=== PATIENT | female | born 1990 | race Caucasian/White ===

== ENCOUNTER 2016-11-18 10:49 | Inpatient (IN) | payer OTHER ==
[2016-11-18] VITALS (7 sets, daily range): BP systolic 120–135; BP diastolic 62–99; PULSE 72–81; RESP 18; TEMP 97.9–98.1; O2SAT 99–100
[~2016-11-18] VITALS: Ht 160 cm; Wt 95.3 kg
[2016-11-18] MEDS: LACTATED RINGER'S 1000 ML INJ 1,000 ML IV SCH ×3 (11:30→14:00)
[2016-11-18] MEDS ORDERED: PREN29TA PO (11:42)
[2016-11-18] MEDS ORDERED: BUPIVACAINE HCL PF 0.25% 10 ML VIAL ONE (11:52)
[2016-11-18 11:55] LABS: AUTOMATED NEUTROPHIL # 11.7 TH/MM3 (1.8-7.7); BASOPHIL % 0.2 % (0.0-2.0); EOSINOPHIL # 0.6 TH/MM3 (0-0.4); EOSINOPHIL % 4.2 % (0.0-4.0); HEMO FLAGS DIFF FINAL; LYMPH % 11.1 % (9.0-44.0); LYMPHOCYTE # 1.7 TH/MM3 (1.0-4.8); MEAN CELL VOLUME 81.5 FL (80.0-100.0); MEAN CORPUSCULAR HEMOGLOBIN 27.7 PG (27.0-34.0); MEAN CORPUSCULAR HGB CONC 34.1 % (32.0-36.0); MONO % 6.2 % (0.0-8.0); NEUT % 78.3 % (16.0-70.0); PLATELET COUNT 213 TH/MM3 (150-450); RED BLOOD COUNT 4.43 MIL/MM3 (4.00-5.30); RED CELL DISTRIBUTION WIDTH 13.2 % (11.6-17.2)
[2016-11-18 12:03] LABS: BACTERIA, URINE RARE /hpf; BLOOD, URINE NEG (NEG); COMMENT (UR) CULT NOT INDICATED; CULTURE IF INDICATED CULT NOT INDICATED; GLUCOSE,URINE NEG (NEG); KETONE, URINE NEG (NEG); MUCUS URINE FEW /lpf (OCC); NITRITE,URINE NEG (NEG); SQUAMOUS EPITHELIAL CELL URINE 3 /hpf (0-5); URINE COLOR YELLOW (YELLW/STRAW)
--- NOTE | 2016-11-18 12:17 | HHI.HP ---
HPI Chief Complaint persistent breech with favorable parameters Date Seen: Nov 18, 2016 Travel History International Travel<30 Days: No Contact w/Intl Traveler<30Days: No Known Affected Area: No History of Present Illness HPI 26 yo mwf at 38 weeks with Tony breech, FAHAD 12.1, posterior placenta. She is a patient of Dr. Blanchard and she requested an external version and was referred to me. Her care began at 9 weeks. She did not have PTL, GDM or HTN issues. She currently has no UCs, leaking, bleeding. Cervix was ft and tony breech. A+ immune to japanese measles and VZ glucola negative GBS - Biophysical today 01/04. Para: 0 : 2 Last Menstrual Period: Nov 18, 2016 History Past Medical History Medical History: Denies Significant Hx Past Surgical History Surgical History: No Previous Surgery Family History Family History: Negative Social History Alcohol Use: No Tobacco Use: No Substance Abuse: No Allergies-Medications (Allergen,Severity, Reaction): Coded Allergies: No Known Allergies (Unverified , 11/18/16) Home Meds Reported Medications Vit-Iron Carbonyl ( Plus Iron 29-1 mg)1 Tab Tab1 Tab PO DAILY #30 TAB Ref 0 11/18/16 Review of Systems General / Constitutional: No: Fever, Weight Gain, Chills, Other Eyes: No: Diploplia, Blurred Vision, Visual changes, Pain, Photophobia HENT: No: Headaches, Vertigo, Lightheadedness Cardiovascular: No: Irregular Rhythm, Chest Pain or Discomfort, Palpitations, Tachycardia, Syncope, Varicosities, Edema, Cyanosis Respiratory: No: Cough, Short of Breath, Other Gastrointestinal: No: Nausea, Vomiting, Diarrhea Genitourinary: No: Decreased Urinary Output, Oliguria Musculoskeletal: No: Limited ROM, Weakness, Cramping, Edema, Pain Skin: No Rash, No Itching, No Dryness, No Lumps, No Change in Pigmentation, No Change in Nails, No Alopecia, No Lesions Neurologic: No: Weakness, Dizziness, Syncope, Focal Abnormalities, Coordination Problem, Headache, Slurred Speech, Seizures Psychiatric: No: Depression, Suicidal Ideations, Homicidal Ideation Endocrine: No: Heat Intolerance, Cold Intolerance, Polydipsia, Polyuria, Other Physical Exam Narrative GENERAL: Well-nourished, well-developed patient. SKIN: Warm and dry. HEAD: Normocephalic and atraumatic. EYES: No scleral icterus. No injection or drainage. ENT: No nasal drainage noted. Mucous membranes pink. Airway patent. NECK: Supple, trachea midline. No JVD. CARDIOVASCULAR: Regular rate and rhythm without murmurs, gallops, or rubs. RESPIRATORY: Breath sounds equal bilaterally. No accessory muscle use. BREASTS: Bilateral exam showed no masses , no retractions, no nipple discharge. ABDOMEN/GI: Abdomen soft, non-tender, bowel sounds present, no rebound, no guarding Gravid to [-] weeks size Fundal Height: [-] GENITOURINARY: External Genitalia: intact and normal in appearance cervix thin, posterior and finger tip FHT's: category 1 EXTREMITIES: No cyanosis or edema. BACK: Nontender without obvious deformity. No CVA tenderness. NEUROLOGICAL: Awake and alert. Motor and sensory grossly within normal limits. Five out of 5 muscle strength in all muscle groups. Normal speech. Data Data Orders Urinalysis - C+S If Indicated (11/18/16 11:39) Specimen To Be Collected PRN (11/18/16 11:39) Complete Blood Count With Diff (11/18/16 11:39) Hold Clot (11/18/16 11:39) Abo/Rh Blood Type (11/18/16 11:39) Fentanyl Inj (Fentanyl Inj) (11/18/16 11:51) Bupivacaine Pf 0.25% Inj (Marcaine Pf 0. (11/18/16 11:52) Labs Laboratory Tests Test 11/18/16 11/18/16 11:00 11:30 Urine Color YELLOW Urine Turbidity HAZY Urine pH 7.0 Urine Specific [place] 1.018 Urine Protein NEG Urine Glucose (UA) NEG Urine Ketones NEG Urine Occult Blood NEG Urine Nitrite NEG Urine Bilirubin NEG Urine Urobilinogen LESS THAN 2.0 Urine Leukocyte Esterase NEG Urine RBC 1 Urine WBC 4 Urine Squamous Epithelial 3 Cells Urine Bacteria RARE Urine Mucus FEW Microscopic Urinalysis Comment CULT NOT INDICATED White Blood Count 15.0 Red Blood Count 4.43 Hemoglobin 12.3 Hematocrit 36.0 Mean Corpuscular Volume 81.5 Mean Corpuscular Hemoglobin 27.7 Mean Corpuscular Hemoglobin 34.1 Concent Red Cell Distribution Width 13.2 Platelet Count 213 Mean Platelet Volume 9.0 Neutrophils (%) (Auto) 78.3 Lymphocytes (%) (Auto) 11.1 Monocytes (%) (Auto) 6.2 Eosinophils (%) (Auto) 4.2 Basophils (%) (Auto) 0.2 Neutrophils # (Auto) 11.7 Lymphocytes # (Auto) 1.7 Monocytes # (Auto) 0.9 Eosinophils # (Auto) 0.6 Basophils # (Auto) 0.0 CBC Comment DIFF FINAL Differential Comment Assessment/Plan Assessment and Plan tony breech in primip with favorable metrics since primip 38 weeks better than later however, [employer] of [employer] initiative interfering with good medicine and preventing delivery after version. If version successful or not she is to be discharged per protocol and return at 39 weeks for either section or induction. If compromise noted during version, will proceed today. Marija Rowell MD Nov 18, 2016 12:17
[2016-11-18] MEDS ORDERED: TERBUTALINE INJ 1 MG/ML AMP SQ ONE (12:30)
[2016-11-18] MEDS ORDERED: DICLOFENAC SODIUM 37.5 MG/ML VIAL IV PUSH ONE (13:12)
[2016-11-18] MEDS ORDERED: ceFAZolin INJ 1,000 MG VIAL ONE (13:13)
[2016-11-18] MEDS ORDERED: OXYTOCIN 10 UNIT/ML AMP ONE (13:13)
--- NOTE | 2016-11-18 13:26 | PD.PN.STU ---
Subjective Remarks 26 year old mwf presents at 38 weeks with Ginger breech and a posterior placenta. She is a patient of Dr. Blanchard and she requested that we attempt an external version and was referred to Dr. Rowell. Her care began at 9 weeks. She did not have labor, gestational diabetes mellitus or hypertension problems. She currently has no contractions, leaking, bleeding. Ultrasound confirmed the fetus was still Ginger breech. Pt is A+ immune to arabic measles and VZ glucola negative GBS - Biophysical today 01/04. ' The version was attempted for 30 minutes but was unsuccessful. The mother was incredibly brave. There were deep variables present and there is now concern for placenta compromise. We will be proceeding to immediately after a discussion with the patient. The patient was given an epidural for the version. Objective Vitals Laboratory Tests Test 11/18/16 11/18/16 11:00 11:30 Urine Color YELLOW Urine Turbidity HAZY Urine pH 7.0 Urine Specific [place] 1.018 Urine Protein NEG mg/dL Urine Glucose (UA) NEG mg/dL Urine Ketones NEG mg/dL Urine Occult Blood NEG Urine Nitrite NEG Urine Bilirubin NEG Urine Urobilinogen LESS THAN 2.0 MG/DL Urine Leukocyte Esterase NEG Urine RBC 1 /hpf Urine WBC 4 /hpf Urine Squamous Epithelial 3 /hpf Cells Urine Bacteria RARE /hpf Urine Mucus FEW /lpf Microscopic Urinalysis Comment CULT NOT INDICATED White Blood Count 15.0 TH/MM3 Red Blood Count 4.43 MIL/MM3 Hemoglobin 12.3 GM/DL Hematocrit 36.0 % Mean Corpuscular Volume 81.5 FL Mean Corpuscular Hemoglobin 27.7 PG Mean Corpuscular Hemoglobin 34.1 % Concent Red Cell Distribution Width 13.2 % Platelet Count 213 TH/MM3 Mean Platelet Volume 9.0 FL Neutrophils (%) (Auto) 78.3 % Lymphocytes (%) (Auto) 11.1 % Monocytes (%) (Auto) 6.2 % Eosinophils (%) (Auto) 4.2 % Basophils (%) (Auto) 0.2 % Neutrophils # (Auto) 11.7 TH/MM3 Lymphocytes # (Auto) 1.7 TH/MM3 Monocytes # (Auto) 0.9 TH/MM3 Eosinophils # (Auto) 0.6 TH/MM3 Basophils # (Auto) 0.0 TH/MM3 CBC Comment DIFF FINAL Differential Comment Blood Type A POSITIVE Blood Bank Comment Band and Hold Current Medications Medications (Trade) Dose Ordered Sig/Suze Route PRN Reason Start Time Stop Time Status Last Admin Dose Admin Fentanyl Citrate (fentaNYL INJ) 100 mcg STK-MED ONCE .ROUTE 11/18/16 11:51 11/18/16 11:52 DC Bupivacaine HCl 10 ml 10 ml STK-MED ONCE .ROUTE 11/18/16 11:52 11/18/16 11:53 DC Lactated Ringer's (Lr 1000 ml Inj) 1,000 ml @ 0 mls/hr Q0M IV 11/18/16 12:17 Terbutaline Sulfate (Brethine Inj) 0.25 mg ONCE ONCE SQ 11/18/16 12:30 11/18/16 12:31 DC Fentanyl Citrate (fentaNYL INJ) 50 mcg ONCE ONCE IV PUSH 11/18/16 12:30 11/18/16 12:31 DC Result Diagram: 11/18/16 1130 A/P Assessment and Plan Assessment and Plan ginger breech with failed version. Version was attempted for 30 minutes but was unsuccessful. Due to the deep variables present and the concern for placenta compromise, we will be proceeding to immediately. This decision was discussed and made with the patient. the patient already has an epidural in place from the version. Artis Ferrell M3 Nov 18, 2016 13:26
[2016-11-18] MEDS ORDERED: CITRIC ACID-SODIUM CITRATE LIQ 30 ML UDC PO SCH (13:30)
[2016-11-18] MEDS ORDERED: SODIUM CHLORIDE 0.9% FLUSH 10 ML FLUSH IV FLUSH PRN ×2 (13:30→14:45)
[2016-11-18] MEDS ORDERED: LIDOCAINE HCL 2% 20 ML VIAL ONE (14:00)
[2016-11-18] MEDS ORDERED: SODIUM BICARBONATE 8.4% INJ 50 MEQ/50 ML SYR ONE (14:00)
[2016-11-18] MEDS ORDERED: LACTATED RINGER'S 1000 ML INJ 1,000 ML IV SCH ×2 (14:00→19:45)
[2016-11-18] MEDS ORDERED: DOCUSATE SODIUM 50 MG/SENNA 8.6 MG TAB PO PRN (14:45)
[2016-11-18] MEDS ORDERED: ONDANSETRON HCL 4 MG/2 ML VIAL IV PUSH PRN (14:45)
[2016-11-18] MEDS ORDERED: OXYTOCIN 30 UNITS-500ML PREMIX 500 ML IV ONE (14:45)
[2016-11-18] MEDS ORDERED: ACETAMINOPHEN 1000 MG/100 ML VIAL IV ONE ×2 (14:45→15:43)
[2016-11-18] MEDS ORDERED: SIMETHICONE 80 MG CHEWABLE TAB PO PRN (14:45)
--- NOTE | 2016-11-18 14:45 | PD.OB.DELI ---
Procedure Note Section Procedure Pre Op Diagnosis term, breech trial of version Post Op Diagnosis: Post Op Diagnosis same, delivered Performed by Marija Rowell Procedure: Primary Low Transverse Sec Indication for delivery: malposition Informed consent obtained: For anesthesia, For procedure Confirmed correct: Patient, Procedure, Site, Time-out taken Anesthesia: Epidural Medication prior to procedure: As documented in eMAR Monitoring during procedure: Blood pressure monitoring, Pulse oximetry Urinary catheter: Inserted using sterile technique, To dependent drainage Sterile preparation: In usual fashion, With 2% chlorexidine (Hibiclens) Position: Supine with wedge to right side Operative Features Skin Incision: Pfannenstiel Uterine Incision: Low transverse w/knife / blunt ext Membranes Ruptured: Artificially Presentation: Breech Delivery of : Assisted Infant: Female One Minute : 6 Five Minute : 9 Weight: 7 9 Status of : Viable, Cord blood Placenta delivered: Intact Medications: Antibiotics, Oxytocin Estimated blood loss: 500 Maternal Condition: Stable Condition: Stable Marija Rowell MD Nov 18, 2016 14:45
[2016-11-18] MEDS ORDERED: ONDANSETRON HCL 4 MG/2 ML VIAL ONE (15:01)
[2016-11-18] MEDS ORDERED: MORPHINE SULFATE PF 5 MG/10 ML VIAL ONE (15:01)
[2016-11-18] MEDS ORDERED: OXYTOCIN 30 UNITS-500ML PREMIX 500 ML ONE (15:43)
[2016-11-18] MEDS ORDERED: EPIDURAL-DIPHENHYDRAMINE HCL 50 MG CAP PO PRN (17:45)
[2016-11-18] MEDS ORDERED: EPIDURAL-NALOXONE HCL 0.4 MG/ML AMP IV PRN (17:45)
[2016-11-18] MEDS ORDERED: EPIDURAL-DIPHENHYDRAMINE HCL 50 MG/ML VIAL IV PUSH PRN (17:45)
[2016-11-18] MEDS ORDERED: EPIDURAL-DO NOT ADMINISTER ANTICOAGULANTS PRN (17:45)
[2016-11-18] MEDS ORDERED: EPIDURAL-NO SYSTEMIC NARCOTICS PRN (17:45)
[2016-11-18] MEDS: DICLOFENAC SODIUM 37.5 MG/ML VIAL IV PUSH SCH (20:03)
[2016-11-18] MEDS ORDERED: ZOLPIDEM TARTRATE 5 MG TAB PO PRN (21:00)
[2016-11-18] MEDS ORDERED: SODIUM CHLORIDE 0.9% FLUSH 10 ML FLUSH IV FLUSH SCH ×2 (21:00)
[2016-11-19] MEDS ORDERED: OXYTOCIN 30 UNITS-500ML PREMIX 500 ML IV PRN (00:45)
[2016-11-19] MEDS: DICLOFENAC SODIUM 37.5 MG/ML VIAL IV PUSH SCH (02:33)
[2016-11-19 06:50] LABS: AUTOMATED NEUTROPHIL # 12.4 TH/MM3 (1.8-7.7); BASOPHIL % 0.2 % (0.0-2.0); EOSINOPHIL # 0.4 TH/MM3 (0-0.4); EOSINOPHIL % 2.6 % (0.0-4.0); HEMATOCRIT 34.8 % (35.0-46.0); HEMO FLAGS DIFF FINAL; LYMPH % 10.9 % (9.0-44.0); LYMPHOCYTE # 1.7 TH/MM3 (1.0-4.8); MEAN CELL VOLUME 81.5 FL (80.0-100.0); MEAN CORPUSCULAR HEMOGLOBIN 28.1 PG (27.0-34.0); MEAN CORPUSCULAR HGB CONC 34.4 % (32.0-36.0); MONO % 5.8 % (0.0-8.0); NEUT % 80.5 % (16.0-70.0); PLATELET COUNT 192 TH/MM3 (150-450); RED BLOOD COUNT 4.26 MIL/MM3 (4.00-5.30); RED CELL DISTRIBUTION WIDTH 13.4 % (11.6-17.2); WHITE BLOOD COUNT 15.4 TH/MM3 (4.0-11.0)
--- NOTE | 2016-11-19 07:58 | HHI.OB ---
Subjective Post Operative Day: 1 Remarks still has not voided or passed gas. feels well. does not want percocet or narcotics because it makes her very nauseated Objective Vitals/I&O Vital Signs Date Time Temp Pulse Resp B/P Pulse Ox O2 Delivery O2 Flow Rate FiO2 11/18/16 16:35 97.9 72 18 129/73 11/18/16 16:05 98.0 11/18/16 16:05 79 18 129/69 100 11/18/16 15:50 135/99 11/18/16 15:50 80 18 99 11/18/16 15:35 81 18 132/72 11/18/16 15:35 100 11/18/16 15:20 100 11/18/16 15:15 80 18 120/62 11/18/16 15:05 98.1 75 18 123/85 11/18/16 15:05 100 Result Diagram: 11/19/16 06 Objective Remarks GENERAL: Well-nourished, well-developed patient. CARDIOVASCULAR: Regular rate and rhythm without murmurs, gallops, or rubs. RESPIRATORY: Breath sounds equal bilaterally. No accessory muscle use. ABDOMEN/GI: Abdomen soft, non-tender, bowel sounds present. Incision:Clean, dry and intact. Fundus: Firm, non-tender at umbilicus. GENITOURINARY: Light to moderate bleeding. EXTREMITIES: No cyanosis or edema, non-tender, without signs of DVT. Medications and IVs Current Medications Medications (Trade) Dose Ordered Sig/Suze Route Start Time Stop Time Status Last Admin (Lr 1000 ml Inj) 1,000 ml @ 0 mls/hr Q0M IV 11/18/16 12:17 11/18/16 11:30 (NS Flush) 2 ml UNSCH PRN IV FLUSH 11/18/16 13:30 Sodium Chloride 2 ml 2 ml BID IV FLUSH 11/18/16 21:00 (Lr 1000 ml Inj) 1,000 ml @ 100 mls/hr Q10H IV 11/18/16 19:45 11/19/16 15:44 (Mylicon Chew) 80 mg QID PRN PO 11/18/16 14:45 (Motrin) 600 mg Q6H PRN PO 11/18/16 14:45 (Percocet 5-325 Mg) 1 tab Q4H PRN PO 11/18/16 14:45 (Percocet 5-325 Mg) 2 tab Q4H PRN PO 11/18/16 14:45 (Sandra-Colace) 2 tab Q12H PRN PO 11/18/16 14:45 (Ambien) 5 mg HS PRN PO 11/18/16 21:00 (M-M-R Ii Inj) 0.5 ml ONCE ONCE SQ 11/19/16 16:00 11/19/16 16:01 (Boostrix Inj) 0.5 ml ONCE ONCE IM 11/19/16 16:00 11/19/16 16:01 (Zofran Inj) 4 mg Q6H PRN IV PUSH 11/18/16 14:45 11/18/16 18:12 Miscellaneous Information NO SYSTEMIC NARCOTICS TO BE GIVEN FO... UNSCH PRN .XX 11/18/16 17:45 11/19/16 17:44 (Narcan Inj) 0.4 mg UNSCH PRN IV 11/18/16 17:45 11/19/16 17:44 (Benadryl Inj) 25 mg Q6H PRN IV PUSH 11/18/16 17:45 11/19/16 17:44 (Benadryl) 50 mg Q6H PRN PO 11/18/16 17:45 11/19/16 17:44 Miscellaneous Information ALL NURSING DEPARTMENTS UNSCH PRN .XX 11/18/16 17:45 11/19/16 17:44 (Dyloject Inj) 37.5 mg Q6H IV PUSH 11/18/16 20:00 11/19/16 08:01 11/19/16 02:33 Assessment/Plan Assessment and Plan POD 1 s/p primary cd for failed version with non-reassuring strip. cont routine pp care encourage ambulation Discharge Planning ppd 2-3 Viktoriya Fajardo MD Nov 19, 2016 07:58
[2016-11-19 08:00] VITALS: BP 110/70; PULSE 70; RESP 18; TEMP 98.5
[2016-11-19] MEDS ORDERED: ACETAMINOPHEN 325 MG TAB PO PRN (08:00)
[2016-11-19] MEDS: IBUPROFEN 600 MG TAB PO PRN ×3 (08:35→22:07)
--- NOTE | 2016-11-19 09:10 | PD.PN.STU ---
Subjective Remarks PPD1 c/s due to breach position after failed version. Mom is doing well in the room, she is assisted by her sister and . + breast feeding + ambulating - urination - gas or BM Objective Vitals Vital Signs Date Time Temp Pulse Resp B/P Pulse Ox O2 Delivery O2 Flow Rate FiO2 11/18/16 16:35 97.9 72 18 129/73 11/18/16 16:05 98.0 11/18/16 16:05 79 18 129/69 100 11/18/16 15:50 135/99 11/18/16 15:50 80 18 99 11/18/16 15:35 81 18 132/72 11/18/16 15:35 100 11/18/16 15:20 100 11/18/16 15:15 80 18 120/62 11/18/16 15:05 98.1 75 18 123/85 11/18/16 15:05 100 Result Diagram: 11/19/16 0605 Objective Remarks General: well appearing, normal mood and affect, happy mommy Cardio: normal rate and rythm; no murmurs or gallops abdomen: no swelling, extremely tender to light touch at incision line and to palpation throughout. bowel sounds faint in all 4 quadrants. no drainage at incision site, no erythema. extremities: no edema, negative Homans sign bilaterally Breast: nontender, no erythema, no discharge - expectantly engorged psych: no signs of PPD currently A/P Assessment and Plan Assessment and Plan 1. Normal PPD1 - Bloom removed at 6:30am, recovery as expected in room Pili Patel Nov 19, 2016 09:10
[2016-11-19] MEDS: oxyCODONE/ACETAMINOPHEN 5 MG/325 MG TAB PO PRN ×4 (13:11→22:07)
--- NOTE | 2016-11-19 14:57 | PD.PN.STU ---
Subjective Remarks Subjective Remarks A 26 y/o mwf presents PPD#1 The baby was in Tony breach so a version was attempted but failed. Baby began to show some variable decelerations so we proceeded to a c/s. Pt is doing great and her and sister are helping with her care. She is breast feeding, ambulating, has voided on her own, and has showered. Objective Vitals Vital Signs Date Time Temp Pulse Resp B/P Pulse Ox O2 Delivery O2 Flow Rate FiO2 11/19/16 08:00 70 110/70 11/19/16 08:00 98.5 18 11/18/16 16:35 97.9 72 18 129/73 11/18/16 16:05 98.0 11/18/16 16:05 79 18 129/69 100 11/18/16 15:50 135/99 11/18/16 15:50 80 18 99 11/18/16 15:35 81 18 132/72 11/18/16 15:35 100 11/18/16 15:20 100 11/18/16 15:15 80 18 120/62 11/18/16 15:05 98.1 75 18 123/85 11/18/16 15:05 100 Result Diagram: 11/19/16 0605 Other Results Objective Remarks Objective Remarks General: well appearing, normal mood and affect, excited about her Cardio: RRR, no murmurs or gallops Abdomen: no swelling, tender to light touch at incision line and to palpation throughout. bowel sounds faint in all 4 quadrants. no drainage at incision site , and no erythema. extremities: no edema Breast: nontender, no erythema, no discharge - expectantly engorged psych: no signs of PPD currently A/P Assessment and Plan Assessment and Plan 1. Normal PPD1 - Bloom removed at 6:30am, recovery as expected in room 2. Encouraged pt to ambulate as tolerable, wear abdominal binder, and to get some rest Artis Ferrell M3 Nov 19, 2016 14:57
[2016-11-19] MEDS ORDERED: DIPHTH/TETANUS/ACEL PERTUSSIS (BOOSTER) 0.5 ML VIAL/PFS IM ONE (16:00)
[2016-11-19] MEDS ORDERED: MEASLES, MUMPS, RUBELLA VACCINE 0.5 ML VIAL SQ ONE (16:00)
[2016-11-19] MEDS ORDERED: IBUP-232 PO (17:36)
[2016-11-19] MEDS ORDERED: OXYC1TAB63 PO (17:36)
[2016-11-19] MEDS ORDERED: SENN1TAB PO (17:36)
--- NOTE | 2016-11-19 17:36 | HHI.DCPOC ---
Discharge Care Plan Diagnosis: (1) delivery delivered Your Health Problems Are: delivery Report Symptoms to Your Doctor -Temperature above 100.5 degrees -Redness, of incision or excessive or foul smelling drainage -Unusual pain or calf pain -Increased vaginal bleeding -Painful or difficulty urinating -Feelings of extreme sadness or anxiety after 2 weeks Goals to Promote Your Health * To prevent worsening of your condition and complications * To maintain your health at the optimal level Directions to Meet Your Goals Take your medications as prescribed Follow your dietary instruction Follow activity as directed Ensure plenty of rest for recovery Drink fluids for hydration Keep your appointments as scheduled Take your immunizations and boosters as scheduled If your symptoms worsen call your PCP, if no PCP go to Urgent Care Center or Emergency Room Smoking is Dangerous to Your Health. Avoid second hand smoke Call the 24-hour crisis hotline for domestic abuse at Viktoriya Fajardo MD Nov 19, 2016 17:36
[2016-11-19 19:49] VITALS: BP 124/80; PULSE 76; RESP 18; TEMP 98.7
[2016-11-20] MEDS: oxyCODONE/ACETAMINOPHEN 5 MG/325 MG TAB PO PRN ×3 (02:08→12:24)
[2016-11-20] MEDS ORDERED: KETOROLAC TROMETHAMINE 30 MG/ML (IVP) VIAL IV PUSH ONE (05:00)
--- NOTE | 2016-11-20 05:08 | HHI.OB ---
Subjective Post Day: 2 Remarks Pt c/o 7/10 pain with movement. She was sleeping when i entered room Objective Vitals/I&O Vital Signs Date Time Temp Pulse Resp B/P Pulse Ox O2 Delivery O2 Flow Rate FiO2 11/19/16 19:49 98.7 76 18 124/80 11/19/16 08:00 70 110/70 11/19/16 08:00 98.5 18 Objective Remarks GENERAL: Well-nourished, well-developed patient. CARDIOVASCULAR: Regular rate and rhythm without murmurs, gallops, or rubs. RESPIRATORY: Breath sounds equal bilaterally. No accessory muscle use. ABDOMEN/GI: Abdomen soft, non-tender. incision c/d/i Fundus: Firm, non-tender at umbilicus. GENITOURINARY: Light to moderate bleeding. EXTREMITIES: No cyanosis or edema, non-tender, without signs of DVT. Medications and IVs Current Medications Medications (Trade) Dose Ordered Sig/Suze Route Start Time Stop Time Status Last Admin (Lr 1000 ml Inj) 1,000 ml @ 0 mls/hr Q0M IV 11/18/16 12:17 11/18/16 11:30 (NS Flush) 2 ml UNSCH PRN IV FLUSH 11/18/16 13:30 (NS Flush) 2 ml BID IV FLUSH 11/18/16 21:00 (Mylicon Chew) 80 mg QID PRN PO 11/18/16 14:45 11/20/16 02:07 (Motrin) 600 mg Q6H PRN PO 11/18/16 14:45 11/19/16 22:07 (Percocet 5-325 Mg) 1 tab Q4H PRN PO 11/18/16 14:45 11/19/16 13:55 (Percocet 5-325 Mg) 2 tab Q4H PRN PO 11/18/16 14:45 11/20/16 02:08 (Sandra-Colace) 2 tab Q12H PRN PO 11/18/16 14:45 11/19/16 14:44 (Ambien) 5 mg HS PRN PO 11/18/16 21:00 (Zofran Inj) 4 mg Q6H PRN IV PUSH 11/18/16 14:45 11/18/16 18:12 (Tylenol) 650 mg Q4H PRN PO 11/19/16 08:00 11/19/16 08:35 Assessment/Plan Assessment and Plan POD 2 s/p primary cd for failed version with non-reassuring strip. cont routine pp care encourage ambulation Discharge Planning ppd 2-3 Viktoriya Fajardo MD Nov 20, 2016 05:08
[2016-11-20 07:50] VITALS: BP 116/73; PULSE 74; RESP 18; TEMP 97.9
[2016-11-20] MEDS: IBUPROFEN 600 MG TAB PO PRN (08:25)
== END 2016-11-20 14:36 | disposition home or self-care (01) | DRG 766 ==
LOC: OBSVTOIN 10:49 → H2EB 10:49 → H1EA 16:34
PROVIDERS: ADMIT Obstetrics & Gynecology; ATTEND Obstetrics & Gynecology
PROC: 10D00Z1 Extraction of Products of Conception, Low, Open Approach (ICD-10-PCS; principal; 2016-11-18)
DX: O32.1XX0 Maternal care for breech presentation, not applicable or unspecified (principal); O76 Abnormality in fetal heart rate and rhythm complicating labor and delivery; Z37.0 Single live birth; Z3A.38 38 weeks gestation of pregnancy
CPT/HCPCS: 59025; 81001; 85025; 86900; 86901; 90715; J0131; J0690; J1130; J1885; J2274; J2405; J2590; J3010; J7120

== ENCOUNTER 2017-12-26 15:16 | Inpatient (IN) ==
[~2017-12-26 15:16] MED LIST: Ketorolac Inj 30 MG/ML (IVP) Vial IV.PUSH ONE
[2017-12-26] MEDS ORDERED: Morphine Sulfate PF Inj 5 MG/10 ML Ampul ONE (16:00)
[2017-12-26] MEDS ORDERED: Oxytocin 30 Units/500ml Premix 0 UNITS/0 ML BAG ONE (16:01)
[2017-12-26] MEDS ORDERED: fentaNYL Citrate Inj 100 MCG/2 ML Ampul ONE (16:02)
[2017-12-26] MEDS ORDERED: Citric Acid/Sodium Citrate Liq 30 ML UDC PO SCH (16:15)
[2017-12-26 16:51] LABS: Baso % (Auto) 0.4 % (0.0-2.0); Eos # (Auto) 0.3 th/mm3 (0.0-0.4); Eos % (Auto) 2.5 % (0.0-4.0); Hematocrit 38.4 % (35.0-46.0); Hemoglobin 12.9 gm/dL (11.6-15.3); Lymph # (Auto) 1.8 th/mm3 (1.0-4.8); Lymph % (Auto) 14.8 % (9.0-44.0); Mean Corpuscular HGB Conc 33.5 % (32.0-36.0); Mean Corpuscular Hemoglobin 26.9 pg (27.0-34.0); Mean Corpuscular Volume 80.5 fL (80.0-100.0); Mean Platelet Volume 9.8 fL (7.0-11.0); Mono # (Auto) 0.7 th/mm3 (0.0-0.9); Mono % (Auto) 6.2 % (0.0-8.0); Neut # (Auto) 9.1 th/mm3 (1.8-7.7); Neut % (Auto) 76.1 % (16.0-70.0); Platelet Count 166 th/mm3 (150-450); Red Blood Count 4.77 mil/mm3 (4.00-5.30); Red Cell Distribution Width 14.6 % (11.6-17.2)
[2017-12-26] MEDS ORDERED: Simethicone 80 MG Chew Tablet PO PRN (17:14)
[2017-12-26 17:16] LABS: Amphetamine Screen,Urine Neg (Neg); Barbiturate Screen,Urine Neg (Neg); Cannabinoid Screen,Urine Neg (Neg); Cocaine Screen,Urine Neg (Neg)
[2017-12-26 17:17] LABS: Bilirubin,Urine Negative (Negative); Clarity,Urine Hazy (Clear); Color,Urine Yellow (Yellw/Straw); Glucose,Urine (UA) Negative (Negative); Leukocyte Esterase,Urine Negative (Negative); Mucus,Urine Moderate /lpf (Occasional); Nitrite,Urine Negative (Negative); Specific Gravity,Urine 1.023 (1.002-1.035); Squamous Epithelial Cell,Urine 3 /hpf (0-5)
[2017-12-26 17:21] LABS: Opiate Screen,Urine Neg (Neg)
[2017-12-26] MEDS ORDERED: Oxytocin 30 Units/500ml Premix 30 UNITS/500 ML BAG IV.SIG ONE (17:30)
--- NOTE | 2017-12-26 18:24 | P.OBDELI ---
Procedure Note - Pre Op Diagnosis (1) Previous section - Post Op Diagnosis (1) Status post delivery Performed by: Marija Rowell MD Procedure: Repeat Low Transverse Section Indication for Delivery: Desired elective repeat Informed Consent Obtained: For anesthesia, For procedure Confirmed Correct: Patient, Procedure, Site, Time-out taken Anesthesia: Spinal Medication Prior to Procedure: As documented in eMAR Monitoring During Procedure: Blood pressure monitoring, doppler, Pulse oximetry Urinary Catheter: Inserted using sterile technique, To dependent drainage Sterile Preparation: Duraprep, In usual fashion Position: Supine with wedge to right side - Operative Features Skin Incision: Pfannenstiel Uterine Incision: Low transverse w/knife / blunt ext Membranes Ruptured: Artificially Presentation: Occiput anterior Status of Infant: Viable Placenta Delivered: Intact Medications: Antibiotics, Oxytocin, Ergot derivatives Estimated blood loss (mL): 750 Procedure Tolerated: Well Maternal Condition: Stable Baby Condition: Stable - : Female (8 pounds 10 ounces), Single (9 and 9 apgars)
--- NOTE | 2017-12-26 18:40 | MH ---
cc: Marija Rowell MD DATE OF ADMISSION: 12/26/2017 PREOPERATIVE DIAGNOSIS: Previous section at term for breech after failed version, term at this point with unfavorable cervix, desires and tubal ligation. HISTORY OF PRESENT CONDITION: The patient is a 26-year-old white female, 3, para 1-0-1-1, with LMP 03/28/2017 and EDC 01/01/2018, currently at 39-1/2 weeks estimated gestational age. Her cervix is long, closed, posterior, and firm. Decision has been made to avoid a trial labor after section. She desires to have a tubal ligation. Her general health is excellent. She has no chronic or systemic illnesses. Only surgeries were a breast biopsy and a in 2006. She does not smoke, drink or use illicit drugs. Her blood type is A positive. Her hemoglobin is 13.1. She is immune to French measles and chickenpox. She had an early UTI, which was treated with ampicillin. TSH was 3.4. She has hepatitis C, B negative, HIV negative, syphilis negative. Chlamydia and GC negative. She declined genetic testing. Her week labs revealed a Glucola 122, hemoglobin 11.7. Her group B strep was negative. PHYSICAL EXAMINATION: GENERAL: Well-developed, well-nourished white female, in no acute distress. VITAL SIGNS: She is afebrile, stable vital signs. LUNGS: Clear. HEART: Regular. ABDOMEN: Fundus is term. Estimated weight is 8 pounds. PELVIC: Cervix is as described. EXTREMITIES: Show 1+ edema. Normal reflexes. IMPRESSION: 1. Term intrauterine . 2. Prior section for failed version and breech. PLAN: Proceed with a repeat elective section with tubal ligation. Risks, benefits, expectations, and alternatives all discussed. Marija Rowell MD PPC/lc/ll , 05:10 PM , 05:16 PM
[2017-12-26] MEDS ORDERED: Oxytocin 30 Units/500ml Premix 30 UNITS/500 ML BAG ONE (19:16)
[2017-12-26] MEDS ORDERED: Naloxone Inj 0.4 MG/ML Vial IV.PUSH PRN (19:35)
--- NOTE | 2017-12-26 19:37 | MP ---
cc: Marija Rowell MD DATE OF OPERATION: 12/26/2017 PREOPERATIVE DIAGNOSIS: 1. Term intrauterine . 2. Previous section for persistent breech, desired elective repeat section. POSTOPERATIVE DIAGNOSES: 1. Term intrauterine . 2. Previous section for persistent breech, desired elective repeat section. PROCEDURE PERFORMED: Repeat low transverse segment section. ANESTHESIA: Spinal with Duramorph. SURGEON: Marija Rowell MD SPEECH THERAPIST TECHNICIAN: Labor and Delivery Staff. FINDINGS: A living female weighing 8 pounds 10 ounces was delivered from [place] with clear fluid. Her Apgars were 9 at 1 and 9 at 5. Her placenta was posterior with a 3-vessel cord. Fluid was clear and copious. She had very significant scarring in the fascia and then of the bladder to the lower uterine segment, but the procedure did go unremarkably, just with tedious and careful dissection. Mom and baby tolerated the procedure well. ESTIMATED BLOOD LOSS: 750 mL SPONGE, INSTRUMENT AND NEEDLE COUNT: Correct. PROCEDURE: The patient was identified as Bronwyn Clark. Her permit was reviewed. She was taken to the operating room. She was administered spinal with Duramorph. She received 2 grams of Ancef. Sequential stockings were on. A Bloom catheter was placed and a timeout was taken with all in attendance. She was prepped and draped in the usual sterile fashion and 3 minutes were taken for the prep to dry. After assuring adequate analgesia, a Pfannenstiel incision was made with a knife and carried down through to the rectus fascia with the Bovie on cutting. The rectus fascia was grabbed and taken off the rectus muscle. The rectus muscle was sharply in the midline. The bladder was scarred up to the lower uterine segment and careful dissection was done to create a lower uterine incision that would not compromise the bladder. This was extended bluntly and the infant was delivered with the findings as noted above. The cord was clamped x 2, cut, and she was handed to the neonatology team in attending. Cord clamping was delayed only 30 seconds The placenta was delivered intact with a 3-vessel cord. It was not possible to exteriorize the uterus, so the incision was closed in vivo with chromic in a running interlocking fashion with a second horizontal imbricating stitch. Careful evaluation of the incision was performed to make sure it was hemostatic at the angles and in the midline. This was the case, and then the rectus muscle was approximated with Vicryl in a loose running and interlocking fashion. Then, the fascia was closed with #1 Vicryl in a non-interlocking fashion. The subcutaneous tissue was closed with 3-0 Vicryl in a running fashion in 2 layers and then the skin was closed with a subcutaneous layer. Then Steri-Strips were placed and a pressure dressing. Two moles that were located on her belly that had irregular borders and had changed during were also removed. One was about 1 cm and was directly below the umbilicus. The second one was more on the left side. Both of these were removed and the area closed with a single stitch and Steri-Strips. These will be sent to pathology. The placenta was sent to [facility] for donation. Sponge, instrument, needle counts were correct. She tolerated the procedure well and went to the recovery room in stable condition. MD GIBSON Porras/domitila/fawn , 06:28 PM , 06:43 PM [facility]
[2017-12-26] MEDS ORDERED: Zolpidem Tartrate 5 MG Tablet PO PRN (21:00)
[2017-12-26] MEDS ORDERED: Oxytocin 30 Units/500ml Premix 30 UNITS/500 ML BAG IV.SIG PRN (22:14)
[2017-12-26] MEDS: Ibuprofen 600 MG Tablet PO PRN (23:46)
[2017-12-27] MEDS: Ibuprofen 600 MG Tablet PO PRN ×3 (06:31→19:39)
--- NOTE | 2017-12-27 07:41 | P.PNOB ---
Subjective Post op day: 1 Interval history: Doing well, pain controlled, ambulating, without difficulty, voiding spontaneously, vaginal bleeding less than menses. Objective Vital Signs/I&O: Vital Signs 12/26/17 15:59 12/26/17 16:00 12/26/17 18:25 Temperature 98.1 F 98.4 F Pulse Rate 86 76 Respiratory Rate 18 20 Blood Pressure 128/78 128/71 12/26/17 18:37 12/26/17 18:40 12/26/17 18:53 Temperature Pulse Rate 75 69 Respiratory Rate 22 18 Blood Pressure 121/64 12/26/17 18:55 12/26/17 19:04 12/26/17 19:15 Temperature 98.4 F Pulse Rate 73 Respiratory Rate 18 Blood Pressure 123/55 L 12/26/17 19:22 12/26/17 20:06 12/26/17 23:38 Temperature 98.3 F 98.2 F Pulse Rate 75 72 62 Respiratory Rate 17 18 18 Blood Pressure 123/61 116/74 121/76 12/27/17 04:00 Temperature 98.4 F Pulse Rate 63 Respiratory Rate 18 Blood Pressure 129/79 Intake & Output 12/26/17 12/27/17 12/27/17 18:59 06:59 18:59 Weight 104.326 kg Result Diagrams: 12/26/17 15:52 Objective Remarks: GENERAL: Well-nourished, well-developed patient. CARDIOVASCULAR: Regular rate and rhythm without murmurs, gallops, or rubs. RESPIRATORY: Breath sounds equal bilaterally. No accessory muscle use. ABDOMEN/GI: Abdomen soft, non-tender, bowel sounds present. Bandage: Clean, dry and intact. Fundus: Firm, non-tender at umbilicus. GENITOURINARY: Light to moderate bleeding. EXTREMITIES: No cyanosis or edema, non-tender, without signs of DVT. 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 Stop: 12/30/17 16:14 Last Admin: 12/26/17 16:52 Dose: 30 ml Diphenhydramine HCl (Benadryl) 50 mg PO Q6H PRN PRN Reason: MILD TO MODERATE ITCHING Stop: 12/27/17 19:34 Last Admin: 12/27/17 02:18 Dose: 50 mg Diphenhydramine HCl (Benadryl Inj) 25 mg IV.PUSH Q6H PRN PRN Reason: MILD TO MODERATE ITCHING Stop: 12/27/17 19:34 Diphtheria/Pertussis/Tetanus Vacc (Boostrix Vaccine Inj) 0.5 ml IM .ONCE ONE Stop: 12/27/17 16:01 Lactated Ringer's (Lr 1000 Ml Inj) 1,000 mls @ 100 mls/hr IV.CONT .Q10H HERLINDA Stop: 12/27/17 18:13 Last Admin: 12/27/17 04:53 Dose: 100 mls/hr Oxytocin (Pitocin 30 Units/Ns 500 Ml Premix) 30 units in 500 mls @ 100 mls/hr IV.SIG UNSCH X1 PRN PRN Reason: Heavy bleeding Stop: 12/27/17 22:13 Ibuprofen (Motrin) 600 mg PO Q6HR PRN PRN Reason: cramping Last Admin: 12/27/17 06:31 Dose: 600 mg Measles/Mumps/Rubella Vaccine Live (M-M-R Ii Vaccine Inj) 0.5 ml SQ .ONCE ONE Stop: 12/27/17 16:01 Miscellaneous Information ([facility]) 1 each OTHER UNSCH PRN PRN Reason: SEE LABEL COMMENTS Stop: 12/27/17 19:34 Miscellaneous Information ([facility]) 1 each OTHER UNSCH PRN PRN Reason: SEE LABEL COMMENTS Stop: 12/27/17 19:34 Naloxone HCl (Narcan Inj) 0.4 mg IV.PUSH UNSCH PRN PRN Reason: SEE LABEL COMMENTS Stop: 12/27/17 19:34 Ondansetron HCl (Zofran Odt) 4 mg PO Q6H PRN PRN Reason: NAUSEA OR VOMITING Last Admin: 12/26/17 21:12 Dose: 4 mg Oxycodone/Acetaminophen (Percocet 5/325 Mg) 1 tab PO Q4H PRN PRN Reason: PAIN SCALE 3 TO 5 Last Admin: 12/27/17 04:45 Dose: 1 tab Oxycodone/Acetaminophen (Percocet 5/325 Mg) 2 tab PO Q4H PRN PRN Reason: PAIN SCALE 6 TO 10 Senna/Docusate Sodium (Sandra-Colace) 2 tab PO Q12H PRN PRN Reason: CONSTIPATION Simethicone (Mylicon Chew) 80 mg PO QID PRN PRN Reason: FLATULENCE Sodium Chloride (Ns Flush) 2 ml IV.FLUSH BID HERLINDA Sodium Chloride (Ns Flush) 2 ml IV.FLUSH UNSCH PRN PRN Reason: FLUSH AFTER USING IV ACCESS Zolpidem Tartrate (Ambien) 5 mg PO HS PRN PRN Reason: INSOMNIA Assessment and Plan - Plan 27-year-old 012 that is post repeat low transverse at 39 weeks. 1. Postoperative day/ day #1: Afebrile, vital signs stable, continue routine postoperative and care. CBC ordered for the this AM and pending. Discussed postoperative precautions, expectations and follow-up. Anticipate discharge home in the next 48 hours. -Female . -Queried PDMP and reviewed report.
[2017-12-27 09:01] LABS: Hematocrit 29.6 % (35.0-46.0); Hemoglobin 10.3 gm/dL (11.6-15.3); Mean Corpuscular HGB Conc 34.8 % (32.0-36.0); Mean Corpuscular Hemoglobin 28.2 pg (27.0-34.0); Mean Corpuscular Volume 80.8 fL (80.0-100.0); Mean Platelet Volume 9.1 fL (7.0-11.0); Platelet Count 130 th/mm3 (150-450); Red Blood Count 3.66 mil/mm3 (4.00-5.30); Red Cell Distribution Width 14.4 % (11.6-17.2); White Blood Count 9.3 th/mm3 (4.0-11.0)
[2017-12-27] MEDS ORDERED: Diphtheria/Tetanus/Pertussis Vaccine Inj 0.5 ML Syringe IM ONE (16:00)
[2017-12-27] MEDS ORDERED: Measles/Mumps/Rubella Vaccine Inj 0.5 ML Vial SQ ONE (16:00)
[2017-12-27] MEDS: Senna/Docusate Sodium 8.6/50 MG Tablet PO PRN (19:39)
[2017-12-28] MEDS: Ibuprofen 600 MG Tablet PO PRN ×3 (01:43→18:16)
--- NOTE | 2017-12-28 08:06 | P.PNOB ---
Subjective Post op day: 2 Interval history: feeling some increased cramping overnight, lochia light, thinks slept through one dose of pain medication overnight which is reason for slight increase; no headache no vision changes no RUQ pain, edema not worse, was able to shower yesterday and remove bandage; states pain is controlled with motrin and percocet as written Objective Vital Signs/I&O: Vital Signs 12/27/17 08:36 12/27/17 11:32 12/27/17 20:00 Temperature 98.1 F 98.5 F Pulse Rate 83 81 86 Respiratory Rate 18 Blood Pressure 139/94 H 136/84 143/76 H 12/27/17 23:45 Temperature Pulse Rate 76 Respiratory Rate Blood Pressure 104/56 L Result Diagrams: 12/27/17 08:45 Objective Remarks: GENERAL: Well-nourished, well-developed patient. Obese. CARDIOVASCULAR: Regular rate and rhythm without murmurs, gallops, or rubs. RESPIRATORY: Breath sounds equal bilaterally. No accessory muscle use. ABDOMEN/GI: Abdomen soft, non-tender, bowel sounds present. Incision: Clean, dry and intact. steri-strips in place. Fundus: Firm, non-tender at umbilicus. GENITOURINARY: Light bleeding. EXTREMITIES: No cyanosis, non-tender, without signs of DVT. 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[facility] Stop: 12/30/17 16:14 Last Admin: 12/26/17 16:52 Dose: 30 ml Ibuprofen (Motrin) 600 mg PO Q6HR PRN PRN Reason: cramping Last Admin: 12/28/17 01:43 Dose: 600 mg Ondansetron HCl (Zofran Odt) 4 mg PO Q6H PRN PRN Reason: NAUSEA OR VOMITING Last Admin: 12/26/17 21:12 Dose: 4 mg Oxycodone/Acetaminophen (Percocet 5/325 Mg) 1 tab PO Q4H PRN PRN Reason: PAIN SCALE 3 TO 5 Last Admin: 12/27/17 19:38 Dose: 1 tab Oxycodone/Acetaminophen (Percocet 5/325 Mg) 2 tab PO Q4H PRN PRN Reason: PAIN SCALE 6 TO 10 Last Admin: 12/28/17 04:49 Dose: 2 tab Senna/Docusate Sodium (Sandra-Colace) 2 tab PO Q12H PRN PRN Reason: CONSTIPATION Last Admin: 12/27/17 19:39 Dose: 2 tab Simethicone (Mylicon Chew) 80 mg PO QID PRN PRN Reason: FLATULENCE Sodium Chloride (Ns Flush) 2 ml IV.FLUSH BID HERLINDA Last Admin: 12/28/17 06:34 Dose: Not Given Sodium Chloride (Ns Flush) 2 ml IV.FLUSH UNSCH PRN PRN Reason: FLUSH AFTER USING IV ACCESS Zolpidem Tartrate (Ambien) 5 mg PO HS PRN PRN Reason: INSOMNIA Assessment and Plan - Diagnosis (1) Status post delivery Code(s): Z98.891 - History of uterine scar from previous surgery Status: Acute - Plan 27-year-old 012 that is post repeat low transverse at 39 weeks. 1. Postoperative day/ day #2: Afebrile, continue routine postoperative and care. BPs mild to moderate range on POD#1, will order PIH labs this morning; no severe range and no symptoms other than edema; CBC & CMP ordered for the this AM and pending. Discussed postoperative precautions, expectations and follow-up. Anticipate discharge home tomorrow if continues to improve today -Female . -Dr. Plummer Queried PDMP and reviewed report. Discharge Planning: routine
[2017-12-28 08:59] VITALS: O2SAT 96
[2017-12-28] MEDS: Senna/Docusate Sodium 8.6/50 MG Tablet PO PRN ×2 (09:35→22:50)
[2017-12-28 11:34] LABS: Baso % (Auto) 0.1 % (0.0-2.0); Eos # (Auto) 0.4 th/mm3 (0.0-0.4); Eos % (Auto) 3.6 % (0.0-4.0); Hematocrit 31.2 % (35.0-46.0); Hemoglobin 10.4 gm/dL (11.6-15.3); Lymph # (Auto) 1.4 th/mm3 (1.0-4.8); Mean Corpuscular HGB Conc 33.5 % (32.0-36.0); Mean Corpuscular Hemoglobin 27.3 pg (27.0-34.0); Mean Corpuscular Volume 81.5 fL (80.0-100.0); Mean Platelet Volume 9.3 fL (7.0-11.0); Mono # (Auto) 0.7 th/mm3 (0.0-0.9); Mono % (Auto) 5.8 % (0.0-8.0); Neut # (Auto) 9.1 th/mm3 (1.8-7.7); Neut % (Auto) 78.5 % (16.0-70.0); Platelet Count 165 th/mm3 (150-450); Red Blood Count 3.83 mil/mm3 (4.00-5.30); Red Cell Distribution Width 14.9 % (11.6-17.2); White Blood Count 11.6 th/mm3 (4.0-11.0)
[2017-12-28 11:54] LABS: Albumin 2.5 g/dL (3.4-5.0); Anion Gap 8 meq/L (5-15); Aspartate Aminotransferase 31 U/L (15-37); Blood Urea Nitrogen 7 mg/dL (7-18); Calcium 8.5 mg/dL (8.5-10.1); Carbon Dioxide 24.7 meq/L (21.0-32.0); Chloride 109 meq/L (98-107); Glomerular Filtration Rate Greater Than 89 mL/min (>89); Glucose,Random 82 mg/dL (74-106); Potassium 4.1 meq/L (3.5-5.1); Sodium 142 meq/L (136-145)
[2017-12-28 11:57] LABS: Alanine Aminotransferase 22 U/L (10-53); Alkaline Phosphatase 128 U/L (45-117)
[2017-12-29] MEDS: Ibuprofen 600 MG Tablet PO PRN ×2 (01:04→07:27)
--- NOTE | 2017-12-29 07:57 | P.PNOB ---
Subjective Post op day: 3 Interval history: doing well, +flatus, labs WNL Objective Vital Signs/I&O: Vital Signs 12/28/17 09:00 12/28/17 19:54 Temperature 97.8 F 98.0 F Pulse Rate 96 H 73 Respiratory Rate 18 18 Blood Pressure 105/71 123/75 Result Diagrams: 12/28/17 11:01 12/28/17 11:01 Objective Remarks: GENERAL: Well-nourished, well-developed patient. CARDIOVASCULAR: Regular rate and rhythm without murmurs, gallops, or rubs. RESPIRATORY: Breath sounds equal bilaterally. No accessory muscle use. ABDOMEN/GI: Abdomen soft, non-tender, bowel sounds present. Incision: Clean, dry and intact. Fundus: Firm, non-tender at umbilicus. GENITOURINARY: Light to moderate bleeding. EXTREMITIES: No cyanosis or edema, non-tender, without signs of DVT. 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[facility] Stop: 12/30/17 16:14 Last Admin: 12/26/17 16:52 Dose: 30 ml Ibuprofen (Motrin) 600 mg PO Q6HR PRN PRN Reason: cramping Last Admin: 12/29/17 07:27 Dose: 600 mg Ondansetron HCl (Zofran Odt) 4 mg PO Q6H PRN PRN Reason: NAUSEA OR VOMITING Last Admin: 12/26/17 21:12 Dose: 4 mg Oxycodone/Acetaminophen (Percocet 5/325 Mg) 1 tab PO Q4H PRN PRN Reason: PAIN SCALE 3 TO 5 Last Admin: 12/27/17 19:38 Dose: 1 tab Oxycodone/Acetaminophen (Percocet 5/325 Mg) 2 tab PO Q4H PRN PRN Reason: PAIN SCALE 6 TO 10 Last Admin: 12/29/17 07:26 Dose: 2 tab Senna/Docusate Sodium (Sandra-Colace) 2 tab PO Q12H PRN PRN Reason: CONSTIPATION Last Admin: 12/28/17 22:50 Dose: 2 tab Simethicone (Mylicon Chew) 80 mg PO QID PRN PRN Reason: FLATULENCE Sodium Chloride (Ns Flush) 2 ml IV.FLUSH BID [facility] Last Admin: 12/28/17 06:34 Dose: Not Given Sodium Chloride (Ns Flush) 2 ml IV.FLUSH UNSCH PRN PRN Reason: FLUSH AFTER USING IV ACCESS Zolpidem Tartrate (Ambien) 5 mg PO HS PRN PRN Reason: INSOMNIA Assessment and Plan - Diagnosis (1) Status post delivery Code(s): Z98.891 - History of uterine scar from previous surgery Status: Acute - Plan 27-year-old 012 that is post repeat low transverse at 39 weeks. 1. Postoperative day/ day #3: Afebrile, continue routine postoperative and care. Labs normal. Discussed postoperative precautions, expectations and follow-up. Anticipate discharge home today if continues to improve -Female . -Dr. Plummer Queried PDMP and reviewed report. Discharge Planning: routine - Attending Attestation pt seen by me
[2017-12-29 08:22] VITALS: BP 131/79; PULSE 83; RESP 16; TEMP 98.4
== END 2017-12-29 13:13 | disposition home or self-care (01) ==
LOC: H2E 15:16 → H1EA 19:33
PROVIDERS: ADMIT Obstetrics & Gynecology; ATTEND Obstetrics & Gynecology